=== PATIENT | male | born 2000 | race Hispanic/Latino ===

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

== ENCOUNTER 2025-02-09 15:52 | Emergency (ER) | payer SELFPAY ==
[~2025-02-09] VITALS: Ht 172.7 cm; Wt 68.0 kg
[2025-02-09 16:00] VITALS: BP 132/66; PULSE 72; RESP 18; TEMP 98.8; O2SAT 99
--- NOTE | 2025-02-09 16:02 | ERN ---
ED Note History of Present Illness Stated Complaint: LOWER BACK PAIN Chief Complaint: Back Pain or Injury Time Seen by MD: 15:57 Dictation: PATIENT IS A 24-YEAR-OLD MALE COMING IN TODAY WITH COMPLAINTS OF RIGHT FLANK PAIN THAT OCCASIONALLY RADIATES FOR TWO WEEKS. NO FEVER NO CHILLS NO NAUSEA VOMITING. HE IS ABLE TO MICTURATE WITHOUT DIFFICULTY. NO PRIMARY CARE DOCTOR KNEE TOOK TYLENOL PRIOR TO ARRIVAL FOR PAIN. 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 Allergies: Coded Allergies: No Known Drug Allergies (Unverified Allergy, Unknown, 02/09/25) Past Medical History Past Medical History: No Pertinent History Surgical History: None RN Note Reviewed/Agreed w/PFSH: Yes Review of System Dictation CONSTITUTIONAL: NEGATIVE EXCEPT FOR HPI HEAD/FACE: NEGATIVE EXCEPT FOR HPI EENT: NEGATIVE EXCEPT FOR HPI RESPIRATORY: NEGATIVE EXCEPT FOR HPI GASTROINTESTINAL/ABDOMINAL: NEGATIVE EXCEPT FOR HPI GENITOURINARY: NEGATIVE EXCEPT FOR HPI MUSCULOSKELETAL: NEGATIVE EXCEPT FOR HPI RIGHT FLANK/LUMBAR PAIN INTEGUMENTARY: NEGATIVE EXCEPT FOR HPI NEUROLOGICAL/PSYCH: NEGATIVE EXCEPT FOR HPI HEMATOLOGIC/LYMPHATIC: NEGATIVE EXCEPT FOR HPI ALL SYSTEMS NEGATIVE, EXCEPT NOTED ABOVE. 13 POINT REVIEW OF SYSTEMS ASSESSED AND ALL NEGATIVE EXCEPT FOR ABOVE. Initial Vital Sign VS Vital Signs Date Time Temp Pulse Resp B/P (MAP) Pulse Ox O2 Delivery O2 Flow Rate FiO2 02/09/25 15:53 98.6 80 20 47/90 99 Room Air 02/09/25 16:00 0 21 Physical Exam Dictation VITAL SIGNS REVIEWED GENERAL APPEARANCE: ALERT, ORIENTED X 3, MILD ACUTE DISTRESS, WELL DEVELOPED, NOURISHED. HEAD AND FACE: NON-TRAUMATIC. EYES: PERRL, PINK CONJUNCTIVAS, EYELID NO TRAUMA, ANTERIOR CHAMBER WITH ARCUS SENILIS. EARS: PINNAS INTACT AND NO SIGNS OF TRAUMA OR ERYTHEMA EAR CANALS CLEAR AND NO DISCHARGE TM NO ERYTHEMA NOSE: NO DISCHARGE, NO BLEEDING. OROPHARYNX: MOUTH NORMAL, TONGUE PINK, PHARYNX CLEAR,NO ERYTHEMA, TONSILS NO EXUDATES, NO ABSCESSES NOTED, MUCOUS MEMBRANE MOIST NECK: SUPPLE, NON-TENDER, NO THYROMEGALY, NO MASSES, NO JVD, NO BRUITS BREAST:DEFERRED CHEST:NO TENDERNESS, NO CREPITUS, NO PARADOXICAL MOVEMENT, NO RETRACTIONS LUNGS:CLEAR, WELL-VENTILATED, SYMMETRIC, NO RALES, NO WHEEZING, NO RHONCHI, NO STRIDOR, GOOD BREATH SOUNDS BILATERALLY HEART: REGULAR RATE, REGULAR RHYTHM, NO MURMUR, NO GALLOPS VASCULAR: NO PERIPHERAL EDEMA, ABDOMEN: SOFT, POSITIVE BOWEL SOUNDS, NONDISTENDED, NO GUARDING, NONTENDER, NO REBOUND, NO MASSES NO HEPATOMEGALY, NO SPLENOMEGALY, NO YANES'S SIGN, NO HERNIAS. NEGATIVE CVAT BILATERALLY RECTAL: DIFFUSE LUMBOSACRAL SACRAL TENDERNESS, FULL RANGE OF MOTION, NO MIDLINE SPINE PAIN OR STEP-OFFS EXTREMITIES: NONTENDER, FULL RANGE OF MOTION SKIN: COLOR PINK, DRY, NO TURGOR, NO RASH, NO LACERATIONS, NO ABRASIONS, NO CONTUSIONS. LYMPHATIC: DEFERRED Results (Laboratory/Radiology) Labs Reviewed?: Yes ED Course ED Course Orders Procedure Category Date Status Time Urinalysis Profile LAB 02/09/25 Logged 16:00 Ketorolac 60mg/2ml PHA 02/09/25 In Process (Toradol 60mg/2ml) 16:00 Current Medications Medications (Trade) Dose Ordered Sig/Sharon Route PRN Reason Start Time Stop Time Status Last Admin Dose Admin Ketorolac Tromethamine (toRADol 60MG/ 2ML) 60 mg ONCE IM 02/09/25 16:00 02/09/25 20:00 02/09/25 16:13 Vital Signs Date Time Temp Pulse Resp B/P (MAP) Pulse Ox O2 Delivery O2 Flow Rate FiO2 02/09/25 16:00 98.8 72 18 132/66 99 Room Air* 0 21 02/09/25 15:53 98.6 80 20 47/90 99 Room Air Medical Decision Making [facility] 1625/PATIENT HAS DECIDED HE WOULD RATHER LEAVE THEN WAIT FOR THE URINALYSIS RESULTS. HE STATES HE HAS A PRIMARY CARE DOCTOR AND WE WILL SEE HIM TOMORROW. PATIENT WILL BE DISCHARGED HOME WITH BACK PAIN DX & DISP Disposition: Discharge Departure Impression: Primary Impression: Acute lumbar back pain Condition: Stable Additional Instructions: FOLLOW-UP WITH PRIMARY CARE PROVIDER IN 1 TO 2 DAYS. TAKE MEDICATIONS DIRECTED HERE IN THE EMERGENCY ROOM. OKAY TO CONTINUE HOME MEDICATIONS UNLESS OTHERWISE DISCUSSED DURING YOUR VISIT IN THE EMERGENCY ROOM TODAY. RETURN TO YOUR NEAREST EMERGENCY ROOM IF SYMPTOMS WORSEN OR IF THERE IS NO IMPROVEMENT. CALL 911 IF YOU NEED IMMEDIATE ASSISTANCE. TAKE TYLENOL OR MOTRIN [id number] NEEDED AND IF NO CONTRAINDICATIONS ARE PRESENT. INCREASE O RAL HYDRATION. A WOUND CULTURE OR URINE CULTURE WAS ORDERED HERE IN THE EMERGENCY ROOM DEPARTMENT PLEASE FOLLOW-UP WITH PRIMARY CARE PROVIDER AND ADVISE THEM TO GET REPEAT PORTS FROM OUR FACILITY. IF YOU HAD ANY MIHAI WRAP/SPLINTS THAT WERE APPLIED HERE, PLEASE DO NOT REMOVE THEM UNTIL YOU SEE YOUR PRIMARY CARE OR SPECIALTY. NO WORK UNTIL CLEARED BY YOUR PRIMARY CARE DOCTOR. SEE HIM TOMORROW FOR FOLLOW UP AND MANAGEMENT. Referrals: DONAVAN RODRÍGUEZ MD (PCP) Time of Disposition: 16:24 I have reviewed the case, and I agree with DEONDRE VAN [employer] BL[employer] HAND[employer]ER Feb 09, 2025 16:02
== END 2025-02-09 16:28 | disposition home or self-care (01) ==
LOC: EDH 15:52
DX: M54.50 Low back pain, unspecified (principal); R10.A1 Flank pain, right side; X50.0XXA Overexertion from strenuous movement or load, initial encounter; Y93.89 Activity, other specified; Y92.89 Other specified places as the place of occurrence of the external cause; Y99.8 Other external cause status
CPT/HCPCS: 99283; 96372; J1885